=== PATIENT | female | born 1935 | race Caucasian/White ===

== ENCOUNTER 2020-03-12 07:01 | Inpatient (IN) ==
[2020-03-12] MEDS ORDERED: NITROGLYCERIN 2% OINT 1 INCH/GM PACK TOP STA (07:33)
[2020-03-12] MEDS ORDERED: NITROGLYCERIN SL 0.4 MG TABLET SL PRN ×2 (07:33→11:55)
[2020-03-12] MEDS ORDERED: ASPIRIN 325 MG TABLET PO STA (07:33)
[2020-03-12 07:58] LABS: Basophils # 0.1 10*3/uL (0.0-0.2); Basophils % 1.2 % (0.0-0.8); Eosinophils # 0.1 10*3/uL (0.0-0.87); Eosinophils % 2.4 % (0.00-10.9); Hematocrit 28.3 VOL% (35.7-47.0); Hemoglobin 8.8 GM/DL (12.0-16.0); Immature Granulocytes % 0.4 %; Immature Granulocytes Absolute 0.02 #; Lymphocytes % 19.1 % (21.3-54.2); Mean Corpuscular HGB Conc 31.1 GM/DL (32-36); Mean Corpuscular Volume 89.6 FL (87-102); Mean Platelet Volume 10.3 FL (9.6-12.0); Neutrophils % 66.9 % (38.7-73.9); Platelet Count 265 T/CUMM (130-400); Red Blood Count 3.16 MC/CUMM (3.8-5.5); Red Cell Distribution Width 14.6 % (9.3-17.3)
[2020-03-12 08:09] LABS: INR 1.3; PT Patient Result 13.5 SECS (9.8-11.9)
[2020-03-12 08:09] LABS: Calcium 9.2 MG/DL (8.5-10.1); Osmolality,Calculated 295.7 MOS/KG (273-304)
[2020-03-12 08:31] LABS: Apearance,Urine Slightly Hazy (Clear); Bacteria,Urine Occasional /HPF (Few); Bilirubin,Urine Negative (Negative); Blood, Urine Negative (Negative); Glucose,Urine (UA) Negative (Negative); Ketones,Urine Negative (Negative); Mucus,Urine Occasional /LPF (Occasional); Nitrite,Urine Negative (Negative); Protein,Urine Negative; RBC,Urine 2 /HPF (0-4); Squamous Epithelial Cell,Urine Occasional /HPF (0-10); Urine Color Yellow (Yellow); Urine Specific Gravity 1.014 (1.001-1.035); Urine Urobilinogen < 2.0 EU/DL (0.2-1.0); WBC,Urine 18 /HPF (0-6)
[2020-03-12] MEDS ORDERED: MAGNESIUM SULF RIDER 4 GM in PREMIX 1 EACH IV PRN (09:55)
[2020-03-12] MEDS ORDERED: MAGNESIUM SULF RIDER 2 GM in PREMIX 1 EACH IV PRN (09:55)
[2020-03-12] MEDS ORDERED: MORPHINE 4 MG/1 ML VIAL IV PRN (09:55)
[2020-03-12] MEDS ORDERED: FUROSEMIDE 40 MG/4 ML VIAL IV STA (10:39)
[2020-03-12] MEDS ORDERED: guaiFENesin/DM ER 600-30 MG TABLET PO PRN (11:55)
[2020-03-12] MEDS ORDERED: GLUCAGON 1 MG VIAL IM PRN (11:55)
[2020-03-12] MEDS ORDERED: hydrALAZINE 20 MG/1 ML VIAL IV PRN (11:55)
[2020-03-12] MEDS ORDERED: ONDANSETRON 4 MG/2 ML VIAL IV PRN (11:55)
[2020-03-12] MEDS ORDERED: LACTULOSE 20 GM/30 ML UDCUP PO PRN (11:55)
[2020-03-12] MEDS ORDERED: CALCIUM CARBONATE CHEW 500 MG TABLET PO PRN (11:55)
[2020-03-12] MEDS ORDERED: DOCUSATE/SENNA 50-8.6 MG TABLET PO PRN (11:55)
[2020-03-12] MEDS ORDERED: ALUMINUM/MAGNES/SIMETH MAX STR 30 ML UDCUP PO PRN (11:55)
[2020-03-12] MEDS ORDERED: DEXTROSE 10% 250 ML BAG IV PRN (11:55)
[2020-03-12] MEDS ORDERED: ZALEPLON 5 MG CAPSULE PO PRN (11:55)
[2020-03-12] MEDS ORDERED: BISACODYL 5 MG TABLET PO PRN (11:55)
[2020-03-12] MEDS ORDERED: SIMETHICONE CHEW 125 MG TABLET PO PRN (11:55)
[2020-03-12] MEDS: INSULIN LISPRO 100 UNIT/ML SUBCUT SCH ×3 (13:09→20:48)
[2020-03-12] MEDS: APIXABAN 2.5 MG TABLET PO SCH (20:47)
[2020-03-12] MEDS: clonazePAM 0.5 MG TABLET PO SCH (20:47)
[2020-03-12] MEDS: ATORVASTATIN 40 MG TABLET PO SCH (20:47)
[2020-03-13 05:57] LABS: Basophils # 0.1 10*3/uL (0.0-0.2); Basophils % 1.1 % (0.0-0.8); Eosinophils # 0.2 10*3/uL (0.0-0.87); Eosinophils % 4.5 % (0.00-10.9); Hematocrit 28.5 VOL% (35.7-47.0); Hemoglobin 8.8 GM/DL (12.0-16.0); Immature Granulocytes % 0.4 %; Immature Granulocytes Absolute 0.02 #; Lymphocytes # 1.6 10*3/uL (1.4-4.0); Lymphocytes % 28.9 % (21.3-54.2); Mean Corpuscular HGB Conc 30.9 GM/DL (32-36); Mean Platelet Volume 10.5 FL (9.6-12.0); Monocytes % 13.1 % (1.7-12.7); Platelet Count 261 T/CUMM (130-400); Red Blood Count 3.24 MC/CUMM (3.8-5.5); Red Cell Distribution Width 14.6 % (9.3-17.3); White Blood Count 5.4 T/CUMM (4-12)
[2020-03-13 06:29] LABS: % Iron Saturation 4.5 % (18-50)
[2020-03-13 06:34] LABS: Risk Ratio 2.71; VLDL CHOLESTEROL 22.2 MG/DL
[2020-03-13 06:36] LABS: Blood Urea Nitrogen 63 MG/DL (7-18); Calcium 9.3 MG/DL (8.5-10.1); Estimated Glom Filtration Rate 19 ML/MIN; Glucose 95 MG/DL (74-106); Osmolality,Calculated 294.5 MOS/KG (273-304); Troponin I 0.045 NG/ML (0.00-0.045)
[2020-03-13 06:42] LABS: Folate 8.3 NG/ML (5.4-24.0)
[2020-03-13] MEDS ORDERED: ISOSORBIDE MONONITRATE 60 MG TABLET PO SCH (09:00)
[2020-03-13] MEDS ORDERED: ASPIRIN EC 81 MG TABLET PO SCH (09:00)
[2020-03-13] MEDS: INSULIN LISPRO 100 UNIT/ML SUBCUT SCH ×4 (09:51→20:35)
[2020-03-13] MEDS: NEBIVOLOL 10 MG TABLET PO SCH (09:52)
[2020-03-13] MEDS: FUROSEMIDE 40 MG TABLET PO SCH (09:53)
[2020-03-13] MEDS: APIXABAN 2.5 MG TABLET PO SCH (09:53)
[2020-03-13] MEDS: CALCIUM (CARBONATE)/VITAMIN D 600 MG-400 UNIT TABLET PO SCH (09:53)
[2020-03-13] MEDS: GLUCOSAMINE 500 MG TABLET PO SCH (09:53)
[2020-03-13] MEDS: RALOXIFENE 60 MG TABLET PO SCH (09:53)
[2020-03-13] MEDS: FENOFIBRATE 145 MG TABLET PO SCH (09:53)
[2020-03-13] MEDS: PANTOPRAZOLE 40 MG TABLET PO SCH (09:54)
[2020-03-13] MEDS: ASPIRIN EC 81 MG TABLET PO SCH (10:02)
[2020-03-13] MEDS: CIPROFLOXACIN 250 MG TABLET PO SCH ×2 (14:42→20:35)
[2020-03-13] MEDS: IRON (CARBONYL) 45 MG TABLET PO SCH ×2 (14:42→20:35)
[2020-03-13] MEDS ORDERED: FUROSEMIDE 40 MG/4 ML VIAL IV ONE (16:37)
[2020-03-13] MEDS: amLODIPine 5 MG TABLET PO SCH (17:43)
[2020-03-13] MEDS: clonazePAM 0.5 MG TABLET PO SCH (20:35)
[2020-03-13] MEDS: ATORVASTATIN 40 MG TABLET PO SCH (20:35)
[2020-03-13] MEDS ORDERED: CLOPIDOGREL 300 MG TABLET PO ONE (21:00)
[2020-03-14 07:01] LABS: Basophils % 0.7 % (0.0-0.8); Eosinophils # 0.2 10*3/uL (0.0-0.87); Eosinophils % 3.2 % (0.00-10.9); Hematocrit 28.1 VOL% (35.7-47.0); Hemoglobin 8.6 GM/DL (12.0-16.0); Immature Granulocytes % 0.4 %; Immature Granulocytes Absolute 0.02 #; Lymphocytes # 1.4 10*3/uL (1.4-4.0); Lymphocytes % 26.3 % (21.3-54.2); Mean Corpuscular HGB Conc 30.6 GM/DL (32-36); Mean Corpuscular Volume 88.1 FL (87-102); Mean Platelet Volume 10.1 FL (9.6-12.0); Monocytes % 13.7 % (1.7-12.7); Neutrophils % 55.7 % (38.7-73.9); Platelet Count 269 T/CUMM (130-400); Red Blood Count 3.19 MC/CUMM (3.8-5.5); Red Cell Distribution Width 14.5 % (9.3-17.3); White Blood Count 5.4 T/CUMM (4-12)
[2020-03-14 07:16] LABS: Calcium 10.1 MG/DL (8.5-10.1); Osmolality,Calculated 295.4 MOS/KG (273-304)
[2020-03-14] MEDS: INSULIN LISPRO 100 UNIT/ML SUBCUT SCH ×4 (07:42→22:28)
[2020-03-14] MEDS: ASPIRIN EC 81 MG TABLET PO SCH (08:25)
[2020-03-14] MEDS: THYROID 60 MG TABLET PO SCH (08:25)
[2020-03-14] MEDS: IRON (CARBONYL) 45 MG TABLET PO SCH ×2 (08:26→22:24)
[2020-03-14] MEDS: NEBIVOLOL 10 MG TABLET PO SCH (08:26)
[2020-03-14] MEDS: ISOSORBIDE MONONITRATE 30 MG TABLET PO SCH (08:26)
[2020-03-14] MEDS: FUROSEMIDE 40 MG TABLET PO SCH (08:27)
[2020-03-14] MEDS: FENOFIBRATE 145 MG TABLET PO SCH (08:27)
[2020-03-14] MEDS: CLOPIDOGREL 75 MG TABLET PO SCH (08:27)
[2020-03-14] MEDS: PANTOPRAZOLE 40 MG TABLET PO SCH (08:27)
[2020-03-14] MEDS: amLODIPine 5 MG TABLET PO SCH (08:27)
[2020-03-14] MEDS: CALCIUM (CARBONATE)/VITAMIN D 600 MG-400 UNIT TABLET PO SCH (08:27)
[2020-03-14] MEDS: CIPROFLOXACIN 250 MG TABLET PO SCH ×2 (08:50→22:24)
[2020-03-14] MEDS: GLUCOSAMINE 500 MG TABLET PO SCH (08:50)
[2020-03-14] MEDS: RALOXIFENE 60 MG TABLET PO SCH (08:50)
[2020-03-14] MEDS: ATORVASTATIN 40 MG TABLET PO SCH (22:23)
[2020-03-14] MEDS: clonazePAM 0.5 MG TABLET PO SCH (22:23)
[2020-03-15 06:04] LABS: Basophils # 0.1 10*3/uL (0.0-0.2); Basophils % 0.9 % (0.0-0.8); Eosinophils # 0.3 10*3/uL (0.0-0.87); Eosinophils % 4.3 % (0.00-10.9); Hematocrit 27.5 VOL% (35.7-47.0); Hemoglobin 8.6 GM/DL (12.0-16.0); Immature Granulocytes % 0.3 %; Immature Granulocytes Absolute 0.02 #; Lymphocytes # 1.7 10*3/uL (1.4-4.0); Lymphocytes % 29.7 % (21.3-54.2); Mean Corpuscular HGB Conc 31.3 GM/DL (32-36); Mean Corpuscular Volume 87.3 FL (87-102); Mean Platelet Volume 10.5 FL (9.6-12.0); Monocytes % 13.9 % (1.7-12.7); Neutrophils % 50.9 % (38.7-73.9); Platelet Count 271 T/CUMM (130-400); Red Blood Count 3.15 MC/CUMM (3.8-5.5); Red Cell Distribution Width 14.6 % (9.3-17.3); White Blood Count 5.8 T/CUMM (4-12)
[2020-03-15 06:38] LABS: Calcium 9.5 MG/DL (8.5-10.1); Osmolality,Calculated 290.7 MOS/KG (273-304)
[2020-03-15] MEDS ORDERED: diphenhydrAMINE CAP 25 MG CAPSULE PO ONE ×2 (07:00→14:00)
[2020-03-15] MEDS ORDERED: DIAZEPAM 5 MG TABLET PO ONE ×2 (07:00→14:00)
[2020-03-15] MEDS: SODIUM CHLORIDE 0.9% 1,000 ML IV SCH ×3 (07:33→18:27)
[2020-03-15] MEDS ORDERED: POTASSIUM CHLORIDE RIDER 10 MEQ in PREMIX 1 EACH IV PRN (07:46)
[2020-03-15] MEDS: INSULIN LISPRO 100 UNIT/ML SUBCUT SCH ×4 (08:28→23:17)
[2020-03-15] MEDS: CALCIUM (CARBONATE)/VITAMIN D 600 MG-400 UNIT TABLET PO SCH (08:29)
[2020-03-15] MEDS: RALOXIFENE 60 MG TABLET PO SCH (08:29)
[2020-03-15] MEDS: NEBIVOLOL 10 MG TABLET PO SCH (08:29)
[2020-03-15] MEDS: CIPROFLOXACIN 250 MG TABLET PO SCH ×2 (08:29→23:10)
[2020-03-15] MEDS: ASPIRIN EC 81 MG TABLET PO SCH (08:29)
[2020-03-15] MEDS: PANTOPRAZOLE 40 MG TABLET PO SCH (08:30)
[2020-03-15] MEDS: FUROSEMIDE 40 MG TABLET PO SCH (08:30)
[2020-03-15] MEDS: IRON (CARBONYL) 45 MG TABLET PO SCH ×2 (08:30→23:09)
[2020-03-15] MEDS: GLUCOSAMINE 500 MG TABLET PO SCH (08:30)
[2020-03-15] MEDS: CLOPIDOGREL 75 MG TABLET PO SCH (08:30)
[2020-03-15] MEDS: ISOSORBIDE MONONITRATE 30 MG TABLET PO SCH (08:30)
[2020-03-15] MEDS: amLODIPine 5 MG TABLET PO SCH (08:30)
[2020-03-15] MEDS: FENOFIBRATE 145 MG TABLET PO SCH (08:31)
[2020-03-15] MEDS: POTASSIUM CHLORIDE 20 MEQ TABLET PO PRN ×3 (09:16→13:10)
[2020-03-15] MEDS ORDERED: HEPARIN/NACL 0.9% 2 UNITS/ML 1,000 ML IV ONE (13:24)
[2020-03-15] MEDS ORDERED: LIDOCAINE 1% 20 ML VIAL ONE (13:24)
[2020-03-15] MEDS ORDERED: MIDAZOLAM 2 MG/2 ML VIAL ONE ×3 (13:56→15:02)
[2020-03-15] MEDS ORDERED: fentaNYL 100 MCG/2 ML VIAL ONE ×2 (13:56→15:02)
[2020-03-15] MEDS ORDERED: HEPARIN 5,000 UNIT/1 ML VIAL ONE (14:06)
[2020-03-15] MEDS ORDERED: NITROPRUSSIDE 50 MG/2 ML VIAL ONE (14:09)
[2020-03-15] MEDS ORDERED: HEPARIN/NACL 0.9% 2 UNITS/ML 500 ML IV ONE (14:28)
[2020-03-15] MEDS ORDERED: diphenhydrAMINE 50 MG/1 ML VIAL ONE (14:30)
[2020-03-15] MEDS ORDERED: CLOPIDOGREL 300 MG TABLET ONE (15:08)
[2020-03-15] MEDS: clonazePAM 0.5 MG TABLET PO SCH (23:08)
[2020-03-15] MEDS: ATORVASTATIN 40 MG TABLET PO SCH (23:10)
[2020-03-16] MEDS ORDERED: ISOSORBIDE MONONITRATE 30 MG TABLET PO SCH (06:14)
[2020-03-16 06:37] LABS: Basophils # 0.1 10*3/uL (0.0-0.2); Eosinophils # 0.2 10*3/uL (0.0-0.87); Eosinophils % 3.9 % (0.00-10.9); Hematocrit 28.3 VOL% (35.7-47.0); Hemoglobin 8.6 GM/DL (12.0-16.0); Immature Granulocytes % 0.3 %; Immature Granulocytes Absolute 0.02 #; Lymphocytes # 1.8 10*3/uL (1.4-4.0); Lymphocytes % 28.1 % (21.3-54.2); Mean Corpuscular HGB Conc 30.4 GM/DL (32-36); Mean Corpuscular Volume 89.6 FL (87-102); Mean Platelet Volume 10.4 FL (9.6-12.0); Monocytes % 11.9 % (1.7-12.7); Neutrophils % 54.8 % (38.7-73.9); Platelet Count 243 T/CUMM (130-400); Red Blood Count 3.16 MC/CUMM (3.8-5.5); Red Cell Distribution Width 14.7 % (9.3-17.3); White Blood Count 6.2 T/CUMM (4-12)
[2020-03-16 06:53] LABS: Calcium 8.9 MG/DL (8.5-10.1); Osmolality,Calculated 291.4 MOS/KG (273-304)
[2020-03-16] MEDS: APIXABAN 2.5 MG TABLET PO SCH ×5 (08:49→13:57)
[2020-03-16] MEDS: INSULIN LISPRO 100 UNIT/ML SUBCUT SCH ×2 (08:49→11:47)
[2020-03-16] MEDS: SODIUM CHLORIDE 0.9% 1,000 ML IV SCH ×2 (10:06→10:46)
[2020-03-16] MEDS: RALOXIFENE 60 MG TABLET PO SCH (10:34)
[2020-03-16] MEDS: NEBIVOLOL 10 MG TABLET PO SCH (10:34)
[2020-03-16] MEDS: PANTOPRAZOLE 40 MG TABLET PO SCH (10:35)
[2020-03-16] MEDS: IRON (CARBONYL) 45 MG TABLET PO SCH (10:35)
[2020-03-16] MEDS: FENOFIBRATE 145 MG TABLET PO SCH (10:35)
[2020-03-16] MEDS: FUROSEMIDE 40 MG TABLET PO SCH (10:35)
[2020-03-16] MEDS: THYROID 60 MG TABLET PO SCH (10:35)
[2020-03-16] MEDS: CALCIUM (CARBONATE)/VITAMIN D 600 MG-400 UNIT TABLET PO SCH (10:36)
[2020-03-16] MEDS: GLUCOSAMINE 500 MG TABLET PO SCH (10:37)
[2020-03-16] MEDS: ASPIRIN EC 81 MG TABLET PO SCH (10:37)
[2020-03-16] MEDS: amLODIPine 5 MG TABLET PO SCH (10:37)
[2020-03-16] MEDS: CLOPIDOGREL 75 MG TABLET PO SCH (10:37)
[2020-03-16] MEDS: POTASSIUM CHLORIDE 20 MEQ TABLET PO PRN (10:37)
[2020-03-16] MEDS: CIPROFLOXACIN 250 MG TABLET PO SCH (10:38)
[2020-03-16 11:55] VITALS: BP 126/66
== END 2020-03-16 15:13 | disposition home or self-care (01) | DRG 246 ==
LOC: N.ED 07:01 → N.EDINP 09:55 → N.TELES 11:24
PROVIDERS: ADMIT Internal Medicine Cardiovascular Disease; ATTEND Internal Medicine Cardiovascular Disease

== ENCOUNTER 2020-07-22 11:12 | Observation (INO) ==
[2020-07-22] MEDS ORDERED: NITROGLYCERIN SL 0.4 MG TABLET SL PRN ×2 (11:44→16:25)
[2020-07-22 12:13] LABS: Albumin 3.3 G/DL (3.4-5.0); Bilirubin,Total 0.7 MG/DL (0.2-1.0); Calcium 9.9 MG/DL (8.5-10.1); Osmolality,Calculated 293.8 MOS/KG (273-304); Total Protein 7.2 G/DL (6.4-8.3)
[2020-07-22 12:43] LABS: Basophils # 0.1 10*3/uL (0.0-0.2); Basophils % 0.6 % (0.0-0.8); Eosinophils # 0.1 10*3/uL (0.0-0.87); Eosinophils % 0.9 % (0.00-10.9); Hematocrit 38.1 VOL% (35.7-47.0); Hemoglobin 12.8 GM/DL (12.0-16.0); Immature Granulocytes % 0.4 %; Immature Granulocytes Absolute 0.03 #; Lymphocytes # 1.4 10*3/uL (1.4-4.0); Lymphocytes % 17.1 % (21.3-54.2); Mean Corpuscular HGB Conc 33.6 GM/DL (32-36); Mean Corpuscular Volume 97.2 FL (87-102); Mean Platelet Volume 10.8 FL (9.6-12.0); Monocytes % 6.8 % (1.7-12.7); Neutrophils % 74.2 % (38.7-73.9); Platelet Count 228 T/CUMM (130-400); Red Blood Count 3.92 MC/CUMM (3.8-5.5); Red Cell Distribution Width 14.2 % (9.3-17.3); White Blood Count 8.1 T/CUMM (4-12)
[2020-07-22 12:55] LABS: INR 1.2; PT Patient Result 12.9 SECS (9.8-11.9); Partial Thromboplastin Time 33.2 SECS (23.9-33.8)
[2020-07-22] MEDS ORDERED: GLUCAGON 1 MG VIAL IM PRN (15:38)
[2020-07-22] MEDS ORDERED: DEXTROSE 50% 25 GM/50 ML VIAL IV PRN (15:38)
[2020-07-22] MEDS ORDERED: ONDANSETRON 4 MG/2 ML VIAL IV PRN (15:48)
[2020-07-22] MEDS ORDERED: hydrALAZINE 20 MG/1 ML VIAL IV PRN (15:48)
[2020-07-22] MEDS ORDERED: ACETAMINOPHEN 325 MG TABLET PO PRN (15:48)
[2020-07-22] MEDS ORDERED: guaiFENesin/DM ER 600-30 MG TABLET PO PRN (15:48)
[2020-07-22] MEDS ORDERED: BISACODYL 5 MG TABLET PO PRN (15:48)
[2020-07-22] MEDS ORDERED: ALBUTEROL 2.5 MG/3 ML NEB RESP TX PRN (16:20)
[2020-07-22] MEDS ORDERED: DOCUSATE/SENNA 50-8.6 MG TABLET PO PRN (16:25)
[2020-07-22 16:39] LABS: Risk Ratio 3.71; Thyroid Stimulating Hormone 0.971 uIU/ml (0.358-3.74)
[2020-07-22] MEDS ORDERED: INFLUENZA VIRUS VACCINE 0.5 ML SYRINGE IM ONE (17:29)
[2020-07-22] MEDS: ALBUTEROL/IPRATROPIUM 3 ML NEB RESP TX SCH (19:20)
[2020-07-22] MEDS: ALPRAZolam 0.25 MG TABLET PO SCH (20:32)
[2020-07-22] MEDS ORDERED: APIXABAN 2.5 MG TABLET PO SCH (21:00)
[2020-07-22] MEDS: FERROUS SULFATE 325 MG TABLET PO SCH (22:51)
[2020-07-22] MEDS: cefTRIAXone 1,000 MG in SODIUM CHLORIDE 0.9% 100 ML IV SCH (23:10)
[2020-07-22] MEDS: CLOPIDOGREL 75 MG TABLET PO SCH ×2 (23:10→23:13)
[2020-07-22] MEDS: ATORVASTATIN 80 MG TABLET PO SCH (23:14)
[2020-07-22] MEDS ORDERED: dilTIAZem Drip 125 MG/125 ML PREMIX IV SCH (23:30)
[2020-07-23] MEDS: ALBUTEROL/IPRATROPIUM 3 ML NEB RESP TX SCH ×5 (01:24→19:35)
[2020-07-23 02:51] LABS: Bacteria,Urine Moderate /HPF (Few); Bilirubin,Urine Negative (Negative); Blood, Urine Negative (Negative); Glucose,Urine (UA) Negative (Negative); Ketones,Urine Negative (Negative); Mucus,Urine Occasional /LPF (Occasional); Nitrite,Urine Positive (Negative); Protein,Urine Negative; RBC,Urine 2 /HPF (0-4); Squamous Epithelial Cell,Urine Occasional /HPF (0-10); Urine Appearance CLEAR (Clear); Urine Color Yellow (Yellow); Urine Specific Gravity 1.011 (1.001-1.035); Urine Urobilinogen < 2.0 EU/DL (0.2-1.0); WBC,Urine 11 /HPF (0-6)
[2020-07-23 06:28] LABS: Basophils % 0.6 % (0.0-0.8); Calcium 9.7 MG/DL (8.5-10.1); Eosinophils # 0.1 10*3/uL (0.0-0.87); Eosinophils % 2.9 % (0.00-10.9); Hematocrit 35.7 VOL% (35.7-47.0); Hemoglobin 11.8 GM/DL (12.0-16.0); Immature Granulocytes % 0.2 %; Immature Granulocytes Absolute 0.01 #; Lymphocytes # 1.5 10*3/uL (1.4-4.0); Lymphocytes % 30.4 % (21.3-54.2); Mean Corpuscular HGB Conc 33.1 GM/DL (32-36); Mean Corpuscular Volume 98.1 FL (87-102); Mean Platelet Volume 11.3 FL (9.6-12.0); Monocytes % 10.6 % (1.7-12.7); Neutrophils % 55.3 % (38.7-73.9); Osmolality,Calculated 299.3 MOS/KG (273-304); Platelet Count 212 T/CUMM (130-400); Red Blood Count 3.64 MC/CUMM (3.8-5.5); Red Cell Distribution Width 14.2 % (9.3-17.3); White Blood Count 4.8 T/CUMM (4-12)
[2020-07-23] MEDS ORDERED: POTASSIUM CHLORIDE 20 MEQ TABLET PO ONE (07:42)
[2020-07-23] MEDS ORDERED: FUROSEMIDE 80 MG TABLET PO SCH (09:00)
[2020-07-23] MEDS: NEBIVOLOL 10 MG TABLET PO SCH (09:32)
[2020-07-23] MEDS: PANTOPRAZOLE 40 MG TABLET PO SCH (09:33)
[2020-07-23] MEDS: FERROUS SULFATE 325 MG TABLET PO SCH ×2 (09:33→20:32)
[2020-07-23] MEDS: amLODIPine 5 MG TABLET PO SCH (09:33)
[2020-07-23] MEDS: AZITHROMYCIN 250 MG TABLET PO SCH (09:33)
[2020-07-23] MEDS: ISOSORBIDE MONONITRATE 60 MG TABLET PO SCH (09:34)
[2020-07-23] MEDS: APIXABAN 2.5 MG TABLET PO SCH (09:34)
[2020-07-23] MEDS: predniSONE 20 MG TABLET PO SCH (09:34)
[2020-07-23] MEDS: FENOFIBRATE 145 MG TABLET PO SCH (09:34)
[2020-07-23] MEDS: NON-FORMULARY MEDICATION (Calcium-Magnesium-Zinc 333-133-5 mg Tablet) PO SCH (09:35)
[2020-07-23] MEDS: NON-FORMULARY MEDICATION (Glucosamine-Chondroitin 250-200 mg Tablet) PO SCH (09:35)
[2020-07-23] MEDS: FUROSEMIDE 40 MG/4 ML VIAL IV SCH ×2 (09:43→17:11)
[2020-07-23] MEDS: ATORVASTATIN 80 MG TABLET PO SCH (20:32)
[2020-07-23] MEDS: cefTRIAXone 1,000 MG in SODIUM CHLORIDE 0.9% 100 ML IV SCH (20:32)
[2020-07-23] MEDS: CLOPIDOGREL 75 MG TABLET PO SCH (20:32)
[2020-07-24] MEDS: ALBUTEROL/IPRATROPIUM 3 ML NEB RESP TX SCH ×3 (01:06→13:58)
[2020-07-24 06:22] LABS: Basophils % 0.3 % (0.0-0.8); Eosinophils % 0.6 % (0.00-10.9); Hematocrit 37.5 VOL% (35.7-47.0); Hemoglobin 12.3 GM/DL (12.0-16.0); Immature Granulocytes % 0.5 %; Immature Granulocytes Absolute 0.03 #; Lymphocytes # 1.5 10*3/uL (1.4-4.0); Lymphocytes % 23.2 % (21.3-54.2); Mean Corpuscular HGB Conc 32.8 GM/DL (32-36); Mean Corpuscular Volume 98.9 FL (87-102); Mean Platelet Volume 11.1 FL (9.6-12.0); Monocytes % 9.7 % (1.7-12.7); Neutrophils % 65.7 % (38.7-73.9); Platelet Count 218 T/CUMM (130-400); Red Blood Count 3.79 MC/CUMM (3.8-5.5); Red Cell Distribution Width 14.5 % (9.3-17.3); White Blood Count 6.5 T/CUMM (4-12)
[2020-07-24 06:45] LABS: Calcium 10.2 MG/DL (8.5-10.1); Osmolality,Calculated 296.3 MOS/KG (273-304)
[2020-07-24] MEDS ORDERED: POTASSIUM CHLORIDE 20 MEQ TABLET PO SCH (09:00)
[2020-07-24] MEDS: amLODIPine 5 MG TABLET PO SCH (09:58)
[2020-07-24] MEDS: ISOSORBIDE MONONITRATE 60 MG TABLET PO SCH (09:58)
[2020-07-24] MEDS: NEBIVOLOL 10 MG TABLET PO SCH (09:58)
[2020-07-24] MEDS: FERROUS SULFATE 325 MG TABLET PO SCH (09:59)
[2020-07-24] MEDS: AZITHROMYCIN 250 MG TABLET PO SCH (09:59)
[2020-07-24] MEDS: FENOFIBRATE 145 MG TABLET PO SCH (09:59)
[2020-07-24] MEDS: APIXABAN 2.5 MG TABLET PO SCH (09:59)
[2020-07-24] MEDS: NON-FORMULARY MEDICATION (Calcium-Magnesium-Zinc 333-133-5 mg Tablet) PO SCH (09:59)
[2020-07-24] MEDS: predniSONE 20 MG TABLET PO SCH (09:59)
[2020-07-24] MEDS: PANTOPRAZOLE 40 MG TABLET PO SCH (09:59)
[2020-07-24] MEDS: NON-FORMULARY MEDICATION (Glucosamine-Chondroitin 250-200 mg Tablet) PO SCH (10:00)
[2020-07-24] MEDS: FUROSEMIDE 40 MG/4 ML VIAL IV SCH (10:05)
[2020-07-24] MEDS: ALPRAZolam 0.25 MG TABLET PO SCH (10:05)
[2020-07-24 14:03] VITALS: BP 134/63
[2020-07-25] MEDS ORDERED: THYROID 60 MG TABLET PO SCH (09:00)
== END 2020-07-24 15:45 | disposition home or self-care (01) ==
LOC: N.ED 11:12 → N.EDINP 11:12 → N.TELEN 17:05
PROVIDERS: ADMIT Internal Medicine; ATTEND Internal Medicine

== ENCOUNTER 2021-05-11 16:00 | Inpatient (IN) ==
[2021-05-11 18:35] LABS: Basophils % 0.5 % (0.0-0.8); Eosinophils # 0.1 10*3/uL (0.0-0.87); Eosinophils % 2.4 % (0.00-10.9); Hemoglobin 10.6 GM/DL (12.0-16.0); Immature Granulocytes % 0.3 %; Immature Granulocytes Absolute 0.02 #; Lymphocytes # 1.1 10*3/uL (1.4-4.0); Lymphocytes % 19.5 % (21.3-54.2); Mean Corpuscular HGB Conc 31.2 GM/DL (32-36); Mean Corpuscular Volume 93.9 FL (87-102); Mean Platelet Volume 11.3 FL (9.6-12.0); Monocytes % 10.7 % (1.7-12.7); Neutrophils % 66.6 % (38.7-73.9); Platelet Count 242 T/CUMM (130-400); Red Blood Count 3.62 MC/CUMM (3.8-5.5); Red Cell Distribution Width 17.2 % (9.3-17.3); White Blood Count 5.8 T/CUMM (4-12)
[2021-05-11 18:43] LABS: Albumin 2.9 G/DL (3.4-5.0); Bilirubin,Total 0.6 MG/DL (0.20-1.00); INR 1.2; Osmolality,Calculated 291.1 MOS/KG (273-304); PT Patient Result 12.9 SECS (10.5-12.0); Partial Thromboplastin Time 29.2 SECS (23.9-33.8); Potassium 4.3 MMOL/L (3.5-5.1); Total Protein 6.4 G/DL (6.4-8.2)
[2021-05-11] MEDS ORDERED: FUROSEMIDE 40 MG/4 ML VIAL IV STA (22:42)
[2021-05-11] MEDS ORDERED: GLUCAGON 1 MG VIAL IM PRN (23:20)
[2021-05-11] MEDS ORDERED: DOCUSATE SODIUM 100 MG CAPSULE PO PRN (23:20)
[2021-05-11] MEDS ORDERED: ACETAMINOPHEN 325 MG TABLET PO PRN (23:20)
[2021-05-11] MEDS ORDERED: DEXTROSE 50% 25 GM/50 ML VIAL IV PRN (23:20)
[2021-05-11] MEDS ORDERED: DOCUSATE/SENNA 50-8.6 MG TABLET PO PRN (23:26)
[2021-05-11] MEDS ORDERED: NITROGLYCERIN SL 0.4 MG TABLET SL PRN (23:26)
[2021-05-12] MEDS: ATORVASTATIN 40 MG TABLET PO SCH ×2 (00:21→22:07)
[2021-05-12] MEDS: APIXABAN 2.5 MG TABLET PO SCH ×3 (00:21→22:07)
[2021-05-12] MEDS: fentaNYL 25 MCG/HR PATCH TRANSDERM SCH (00:22)
[2021-05-12 05:45] LABS: Basophils # 0.1 10*3/uL (0.0-0.2); Basophils % 1.4 % (0.0-0.8); Eosinophils # 0.3 10*3/uL (0.0-0.87); Eosinophils % 6.3 % (0.00-10.9); Hematocrit 33.2 VOL% (35.7-47.0); Hemoglobin 10.6 GM/DL (12.0-16.0); Immature Granulocytes % 0.4 %; Immature Granulocytes Absolute 0.02 #; Lymphocytes # 1.2 10*3/uL (1.4-4.0); Mean Corpuscular HGB Conc 31.9 GM/DL (32-36); Mean Corpuscular Volume 93.3 FL (87-102); Mean Platelet Volume 10.7 FL (9.6-12.0); Monocytes % 13.3 % (1.7-12.7); Neutrophils % 55.6 % (38.7-73.9); Platelet Count 211 T/CUMM (130-400); Red Blood Count 3.56 MC/CUMM (3.8-5.5); Red Cell Distribution Width 17.2 % (9.3-17.3); White Blood Count 5.1 T/CUMM (4-12)
[2021-05-12 06:18] LABS: Calcium 9.4 MG/DL (8.5-10.1); Potassium 4.3 MMOL/L (3.5-5.1)
[2021-05-12] MEDS: RALOXIFENE 60 MG TABLET PO SCH (08:58)
[2021-05-12] MEDS: PANTOPRAZOLE 40 MG TABLET PO SCH (08:58)
[2021-05-12] MEDS: CLOPIDOGREL 75 MG TABLET PO SCH (08:58)
[2021-05-12] MEDS: NEBIVOLOL 10 MG TABLET PO SCH (08:58)
[2021-05-12] MEDS: THYROID 60 MG TABLET PO SCH (08:58)
[2021-05-12] MEDS: FERROUS SULFATE 325 MG TABLET PO SCH ×2 (08:58→16:51)
[2021-05-12] MEDS: FENOFIBRATE 145 MG TABLET PO SCH (08:58)
[2021-05-12] MEDS: amLODIPine 10 MG TABLET PO SCH (08:59)
[2021-05-12] MEDS: metOLazone 5 MG TABLET PO SCH ×2 (08:59→09:28)
[2021-05-12] MEDS ORDERED: NON-FORMULARY MEDICATION (Calcium-Magnesium-Zinc 333-133-5 mg Tablet) PO SCH (09:00)
[2021-05-12] MEDS ORDERED: ISOSORBIDE MONONITRATE 60 MG TABLET PO SCH (09:00)
[2021-05-12] MEDS: FUROSEMIDE 40 MG/4 ML VIAL IV SCH ×2 (09:50→15:52)
[2021-05-12] MEDS: RANOLAZINE 500 MG TABLET PO SCH (22:07)
[2021-05-12] MEDS: SILDENAFIL 20 MG TABLET PO SCH (22:07)
[2021-05-13 05:38] LABS: Basophils # 0.1 10*3/uL (0.0-0.2); Basophils % 1.2 % (0.0-0.8); Eosinophils # 0.3 10*3/uL (0.0-0.87); Eosinophils % 5.4 % (0.00-10.9); Hematocrit 33.8 VOL% (35.7-47.0); Hemoglobin 10.8 GM/DL (12.0-16.0); Immature Granulocytes % 0.4 %; Immature Granulocytes Absolute 0.02 #; Lymphocytes # 1.1 10*3/uL (1.4-4.0); Lymphocytes % 20.5 % (21.3-54.2); Mean Corpuscular Volume 92.9 FL (87-102); Mean Platelet Volume 10.7 FL (9.6-12.0); Monocytes % 12.5 % (1.7-12.7); Platelet Count 223 T/CUMM (130-400); Red Blood Count 3.64 MC/CUMM (3.8-5.5); Red Cell Distribution Width 17.3 % (9.3-17.3); White Blood Count 5.2 T/CUMM (4-12)
[2021-05-13 05:47] LABS: Calcium 9.3 MG/DL (8.5-10.1); Osmolality,Calculated 291.3 MOS/KG (273-304); Potassium 3.5 MMOL/L (3.5-5.1)
[2021-05-13] MEDS: ONDANSETRON 4 MG/2 ML VIAL IV PRN ×3 (07:23→18:54)
[2021-05-13] MEDS: FENOFIBRATE 145 MG TABLET PO SCH (08:26)
[2021-05-13] MEDS: FERROUS SULFATE 325 MG TABLET PO SCH ×2 (08:27→16:29)
[2021-05-13] MEDS: NEBIVOLOL 10 MG TABLET PO SCH (08:27)
[2021-05-13] MEDS: CLOPIDOGREL 75 MG TABLET PO SCH (08:28)
[2021-05-13] MEDS: RANOLAZINE 500 MG TABLET PO SCH ×2 (08:28→21:37)
[2021-05-13] MEDS: PANTOPRAZOLE 40 MG TABLET PO SCH (08:28)
[2021-05-13] MEDS: APIXABAN 2.5 MG TABLET PO SCH ×2 (08:29→21:37)
[2021-05-13] MEDS: RALOXIFENE 60 MG TABLET PO SCH (08:29)
[2021-05-13] MEDS: FUROSEMIDE 40 MG/4 ML VIAL IV SCH ×2 (08:32→15:35)
[2021-05-13] MEDS: SILDENAFIL 20 MG TABLET PO SCH ×3 (08:33→21:37)
[2021-05-13] MEDS: amLODIPine 10 MG TABLET PO SCH (08:34)
[2021-05-13] MEDS ORDERED: PROMETHAZINE 25 MG TABLET PO ONE (15:41)
[2021-05-13] MEDS: ATORVASTATIN 40 MG TABLET PO SCH (21:37)
[2021-05-14 06:05] LABS: Basophils # 0.1 10*3/uL (0.0-0.2); Basophils % 0.6 % (0.0-0.8); Eosinophils # 0.1 10*3/uL (0.0-0.87); Eosinophils % 1.3 % (0.00-10.9); Hematocrit 36.1 VOL% (35.7-47.0); Hemoglobin 11.5 GM/DL (12.0-16.0); Immature Granulocytes % 1.3 %; Immature Granulocytes Absolute 0.13 #; Lymphocytes # 0.8 10*3/uL (1.4-4.0); Lymphocytes % 7.9 % (21.3-54.2); Mean Corpuscular HGB Conc 31.9 GM/DL (32-36); Mean Corpuscular Volume 92.6 FL (87-102); Mean Platelet Volume 11.3 FL (9.6-12.0); Monocytes % 6.6 % (1.7-12.7); Neutrophils % 82.3 % (38.7-73.9); Platelet Count 244 T/CUMM (130-400); Red Cell Distribution Width 17.4 % (9.3-17.3); White Blood Count 9.6 T/CUMM (4-12)
[2021-05-14] MEDS: ONDANSETRON 4 MG/2 ML VIAL IV PRN ×2 (06:12→21:59)
[2021-05-14 06:50] LABS: Calcium 9.4 MG/DL (8.5-10.1); Osmolality,Calculated 293.1 MOS/KG (273-304); Potassium 3.5 MMOL/L (3.5-5.1)
[2021-05-14] MEDS: FUROSEMIDE 40 MG/4 ML VIAL IV SCH ×2 (09:26→16:24)
[2021-05-14] MEDS: CLOPIDOGREL 75 MG TABLET PO SCH (09:27)
[2021-05-14] MEDS: FENOFIBRATE 145 MG TABLET PO SCH (09:27)
[2021-05-14] MEDS: FERROUS SULFATE 325 MG TABLET PO SCH ×2 (09:27→16:22)
[2021-05-14] MEDS: RANOLAZINE 500 MG TABLET PO SCH ×2 (09:27→21:59)
[2021-05-14] MEDS: NEBIVOLOL 10 MG TABLET PO SCH (09:27)
[2021-05-14] MEDS: APIXABAN 2.5 MG TABLET PO SCH ×2 (09:27→21:59)
[2021-05-14] MEDS: amLODIPine 10 MG TABLET PO SCH (09:28)
[2021-05-14] MEDS: SILDENAFIL 20 MG TABLET PO SCH ×3 (09:28→21:59)
[2021-05-14] MEDS: PANTOPRAZOLE 40 MG TABLET PO SCH (09:28)
[2021-05-14] MEDS: RALOXIFENE 60 MG TABLET PO SCH (11:06)
[2021-05-14] MEDS: POLYETHYLENE GLYCOL POWDER 17 GM PACK PO SCH (16:23)
[2021-05-14] MEDS: DOCUSATE/SENNA 50-8.6 MG TABLET PO SCH (21:58)
[2021-05-14] MEDS: ATORVASTATIN 40 MG TABLET PO SCH (21:59)
[2021-05-15] MEDS: fentaNYL 25 MCG/HR PATCH TRANSDERM SCH (00:21)
[2021-05-15 06:08] LABS: Basophils # 0.1 10*3/uL (0.0-0.2); Basophils % 0.5 % (0.0-0.8); Eosinophils # 0.1 10*3/uL (0.0-0.87); Eosinophils % 0.7 % (0.00-10.9); Hematocrit 36.2 VOL% (35.7-47.0); Hemoglobin 11.6 GM/DL (12.0-16.0); Immature Granulocytes % 0.4 %; Immature Granulocytes Absolute 0.04 #; Lymphocytes # 0.8 10*3/uL (1.4-4.0); Lymphocytes % 8.1 % (21.3-54.2); Mean Corpuscular Volume 91.2 FL (87-102); Mean Platelet Volume 10.5 FL (9.6-12.0); Monocytes % 6.6 % (1.7-12.7); Neutrophils % 83.7 % (38.7-73.9); Platelet Count 232 T/CUMM (130-400); Red Blood Count 3.97 MC/CUMM (3.8-5.5); Red Cell Distribution Width 16.9 % (9.3-17.3); White Blood Count 9.5 T/CUMM (4-12)
[2021-05-15] MEDS: ONDANSETRON 4 MG/2 ML VIAL IV PRN ×3 (06:24→15:03)
[2021-05-15 06:31] LABS: Calcium 9.3 MG/DL (8.5-10.1); Potassium 3.1 MMOL/L (3.5-5.1)
[2021-05-15] MEDS: FERROUS SULFATE 325 MG TABLET PO SCH ×2 (09:29→17:31)
[2021-05-15] MEDS: DOCUSATE/SENNA 50-8.6 MG TABLET PO SCH ×2 (09:30→20:20)
[2021-05-15] MEDS: PANTOPRAZOLE 40 MG TABLET PO SCH (09:30)
[2021-05-15] MEDS: NEBIVOLOL 10 MG TABLET PO SCH (09:30)
[2021-05-15] MEDS: FUROSEMIDE 40 MG/4 ML VIAL IV SCH (09:31)
[2021-05-15] MEDS: POLYETHYLENE GLYCOL POWDER 17 GM PACK PO SCH (09:32)
[2021-05-15] MEDS: FENOFIBRATE 145 MG TABLET PO SCH (09:32)
[2021-05-15] MEDS: CLOPIDOGREL 75 MG TABLET PO SCH (09:33)
[2021-05-15] MEDS: RANOLAZINE 500 MG TABLET PO SCH (09:33)
[2021-05-15] MEDS: SILDENAFIL 20 MG TABLET PO SCH ×3 (09:33→20:20)
[2021-05-15] MEDS: APIXABAN 2.5 MG TABLET PO SCH ×2 (09:33→20:19)
[2021-05-15] MEDS: THYROID 60 MG TABLET PO SCH (09:33)
[2021-05-15] MEDS: RALOXIFENE 60 MG TABLET PO SCH (09:33)
[2021-05-15] MEDS: amLODIPine 10 MG TABLET PO SCH (09:33)
[2021-05-15] MEDS ORDERED: POTASSIUM CHLORIDE 20 MEQ TABLET PO ONE (10:22)
[2021-05-15] MEDS: ATORVASTATIN 40 MG TABLET PO SCH (20:19)
[2021-05-16] MEDS ORDERED: TORSEMIDE 20 MG TABLET PO SCH (09:00)
[2021-05-16] MEDS ORDERED: FUROSEMIDE 40 MG/4 ML VIAL IV SCH (09:00)
[2021-05-16 10:20] LABS: Basophils # 0.1 10*3/uL (0.0-0.2); Basophils % 0.5 % (0.0-0.8); Eosinophils # 0.1 10*3/uL (0.0-0.87); Eosinophils % 0.5 % (0.00-10.9); Hematocrit 41.5 VOL% (35.7-47.0); Hemoglobin 13.3 GM/DL (12.0-16.0); Immature Granulocytes % 0.5 %; Immature Granulocytes Absolute 0.05 #; Lymphocytes # 0.9 10*3/uL (1.4-4.0); Lymphocytes % 9.6 % (21.3-54.2); Mean Corpuscular Volume 91.2 FL (87-102); Mean Platelet Volume 10.8 FL (9.6-12.0); Monocytes % 8.3 % (1.7-12.7); Neutrophils % 80.6 % (38.7-73.9); Platelet Count 308 T/CUMM (130-400); Red Blood Count 4.55 MC/CUMM (3.8-5.5); Red Cell Distribution Width 17.1 % (9.3-17.3); White Blood Count 9.4 T/CUMM (4-12)
[2021-05-16 10:28] LABS: Calcium 9.5 MG/DL (8.5-10.1); Osmolality,Calculated 280.4 MOS/KG (273-304); Potassium 3.7 MMOL/L (3.5-5.1)
[2021-05-16] MEDS: NEBIVOLOL 10 MG TABLET PO SCH (10:52)
[2021-05-16] MEDS: APIXABAN 2.5 MG TABLET PO SCH (10:53)
[2021-05-16] MEDS: FERROUS SULFATE 325 MG TABLET PO SCH (10:54)
[2021-05-16] MEDS: CLOPIDOGREL 75 MG TABLET PO SCH (10:54)
[2021-05-16] MEDS: PANTOPRAZOLE 40 MG TABLET PO SCH (10:54)
[2021-05-16] MEDS: FENOFIBRATE 145 MG TABLET PO SCH (10:55)
[2021-05-16] MEDS: amLODIPine 10 MG TABLET PO SCH (10:55)
[2021-05-16] MEDS: SILDENAFIL 20 MG TABLET PO SCH ×2 (10:56→16:22)
[2021-05-16] MEDS: DOCUSATE/SENNA 50-8.6 MG TABLET PO SCH (10:58)
[2021-05-16] MEDS: RALOXIFENE 60 MG TABLET PO SCH (11:00)
[2021-05-16] MEDS: POLYETHYLENE GLYCOL POWDER 17 GM PACK PO SCH (11:01)
[2021-05-16 12:27] VITALS: BP 182/75
[2021-05-16] MEDS ORDERED: SKIN HEALING OINT (AQUAPHOR) 50 GM TUBE TOP PRN (14:01)
[2021-05-16] MEDS ORDERED: TERAZOSIN 1 MG CAPSULE PO SCH (21:00)
== END 2021-05-16 16:15 | disposition hospice, home (50) | DRG 291 ==
LOC: N.ED 16:00 → N.EDINP 16:00 → SUATTDRO 21:59 → N.5E 22:41 → SUATTDRO 05-14 19:54 → N.TELES 05-15 19:24
PROVIDERS: ADMIT Internal Medicine; ATTEND Internal Medicine Geriatric Medicine

== ENCOUNTER 2021-08-02 09:27 | Inpatient (IN) ==
[2021-08-02] MEDS ORDERED: FUROSEMIDE 100 MG/10 ML VIAL IV STA (09:54)
[2021-08-02 10:04] LABS: Basophils # 0.1 10*3/uL (0.0-0.2); Basophils % 0.9 % (0.0-0.8); Eosinophils # 0.1 10*3/uL (0.0-0.87); Eosinophils % 2.4 % (0.00-10.9); Hematocrit 33.3 VOL% (35.7-47.0); Hemoglobin 10.6 GM/DL (12.0-16.0); Immature Granulocytes % 0.6 %; Immature Granulocytes Absolute 0.03 #; Lymphocytes % 18.8 % (21.3-54.2); Mean Corpuscular HGB Conc 31.8 GM/DL (32-36); Mean Corpuscular Volume 95.4 FL (87-102); Monocytes % 8.9 % (1.7-12.7); Neutrophils % 68.4 % (38.7-73.9); Platelet Count 209 T/CUMM (130-400); Red Blood Count 3.49 MC/CUMM (3.8-5.5); Red Cell Distribution Width 17.4 % (9.3-17.3); White Blood Count 5.4 T/CUMM (4-12)
[2021-08-02 10:22] LABS: Albumin 3.1 G/DL (3.4-5.0); Bilirubin,Total 0.8 MG/DL (0.20-1.00); Calcium 9.7 MG/DL (8.5-10.1); Osmolality,Calculated 299.3 MOS/KG (273-304); Potassium 4.3 MMOL/L (3.5-5.1); Total Protein 7.2 G/DL (6.4-8.2)
[2021-08-02 10:38] LABS: Bacteria,Urine Occasional /HPF (Few); Bilirubin,Urine Negative (Negative); Blood, Urine Negative (Negative); Glucose,Urine (UA) Negative (Negative); Hyaline Casts,Urine 3 /LPF (0-3); Ketones,Urine Negative (Negative); Mucus,Urine Occasional /LPF (Occasional); Nitrite,Urine Negative (Negative); Protein,Urine Negative; RBC,Urine 2 /HPF (0-4); Squamous Epithelial Cell,Urine Occasional /HPF (0-10); Urine Appearance CLEAR (Clear); Urine Color Yellow (Yellow); Urine Specific Gravity 1.012 (1.001-1.035); Urine Urobilinogen < 2.0 EU/DL (0.2-1.0)
[2021-08-02] MEDS ORDERED: hydrALAZINE 20 MG/1 ML VIAL IV ONE (11:02)
[2021-08-02] MEDS ORDERED: DEXTROSE 50% 25 GM/50 ML VIAL IV PRN (11:36)
[2021-08-02] MEDS ORDERED: hydrALAZINE 20 MG/1 ML VIAL IV PRN (11:36)
[2021-08-02] MEDS ORDERED: ALBUTEROL 2.5 MG/3 ML NEB RESP TX PRN (11:36)
[2021-08-02] MEDS ORDERED: MAGNESIUM SULF RIDER 4 GM/100 ML PREMIX IV PRN (11:36)
[2021-08-02] MEDS ORDERED: GLUCAGON 1 MG VIAL IM PRN (11:36)
[2021-08-02] MEDS ORDERED: BISACODYL 5 MG TABLET PO PRN (11:36)
[2021-08-02] MEDS ORDERED: MAGNESIUM SULF RIDER 2 GM/50 ML PREMIX IV PRN (11:36)
[2021-08-02] MEDS ORDERED: NITROGLYCERIN SL 0.4 MG TABLET SL PRN (11:40)
[2021-08-02] MEDS ORDERED: fentaNYL 25 MCG/HR PATCH TRANSDERM SCH (12:00)
[2021-08-02] MEDS ORDERED: amLODIPine 5 MG TABLET PO STA (12:46)
[2021-08-02] MEDS ORDERED: ISOSORBIDE MONONITRATE 30 MG TABLET PO SCH (13:00)
[2021-08-02] MEDS ORDERED: VANCOMYCIN INJ 1,250 MG in SODIUM CHLORIDE 0.9% 250 ML IV PRN (15:35)
[2021-08-02] MEDS ORDERED: INFLUENZA VIRUS VACCINE 0.5 ML SYRINGE IM ONE (16:11)
[2021-08-02] MEDS: FUROSEMIDE 40 MG/4 ML VIAL IV SCH (16:42)
[2021-08-02] MEDS: THYROID 60 MG TABLET PO SCH (16:42)
[2021-08-02] MEDS: SILDENAFIL 20 MG TABLET PO SCH ×2 (16:42→21:29)
[2021-08-02] MEDS: NEBIVOLOL 10 MG TABLET PO SCH (16:42)
[2021-08-02] MEDS: cefTRIAXone 1,000 MG in SODIUM CHLORIDE 0.9% 100 ML IV SCH (16:43)
[2021-08-02] MEDS ORDERED: VANCOMYCIN INJ 2,250 MG in SODIUM CHLORIDE 0.9% 500 ML IV ONE (17:00)
[2021-08-02] MEDS: INSULIN LISPRO 100 UNIT/ML SUBCUT SCH ×2 (17:10→21:12)
[2021-08-02] MEDS: APIXABAN 2.5 MG TABLET PO SCH (21:28)
[2021-08-02] MEDS: ATORVASTATIN 40 MG TABLET PO SCH (21:28)
[2021-08-02] MEDS: FERROUS SULFATE 325 MG TABLET PO SCH (21:29)
[2021-08-03] MEDS: FUROSEMIDE 40 MG/4 ML VIAL IV SCH ×3 (00:26→17:20)
[2021-08-03 05:20] LABS: Basophils % 0.8 % (0.0-0.8); Eosinophils # 0.3 10*3/uL (0.0-0.87); Eosinophils % 4.9 % (0.00-10.9); Hematocrit 30.6 VOL% (35.7-47.0); Hemoglobin 9.7 GM/DL (12.0-16.0); Immature Granulocytes % 0.4 %; Immature Granulocytes Absolute 0.02 #; Lymphocytes % 19.1 % (21.3-54.2); Mean Corpuscular HGB Conc 31.7 GM/DL (32-36); Mean Corpuscular Volume 97.1 FL (87-102); Mean Platelet Volume 11.5 FL (9.6-12.0); Monocytes % 12.1 % (1.7-12.7); Neutrophils % 62.7 % (38.7-73.9); Platelet Count 179 T/CUMM (130-400); Red Blood Count 3.15 MC/CUMM (3.8-5.5); Red Cell Distribution Width 17.5 % (9.3-17.3); White Blood Count 5.1 T/CUMM (4-12)
[2021-08-03 05:41] LABS: Calcium 8.9 MG/DL (8.5-10.1); Potassium 3.9 MMOL/L (3.5-5.1); Risk Ratio 2.81; VLDL Cholesterol 13.8 MG/DL
[2021-08-03] MEDS: INSULIN LISPRO 100 UNIT/ML SUBCUT SCH ×4 (07:30→21:50)
[2021-08-03] MEDS ORDERED: ISOSORBIDE MONONITRATE 60 MG TABLET PO SCH (09:00)
[2021-08-03] MEDS ORDERED: NEBIVOLOL 10 MG TABLET PO SCH (09:00)
[2021-08-03] MEDS ORDERED: CALCIUM MAGNESIUM ZINC PO SCH (09:00)
[2021-08-03] MEDS: FERROUS SULFATE 325 MG TABLET PO SCH ×2 (09:38→22:09)
[2021-08-03] MEDS: NEBIVOLOL 10 MG TABLET PO SCH (09:38)
[2021-08-03] MEDS: APIXABAN 2.5 MG TABLET PO SCH ×2 (09:39→22:09)
[2021-08-03] MEDS: PANTOPRAZOLE 40 MG TABLET PO SCH (09:39)
[2021-08-03] MEDS: RALOXIFENE 60 MG TABLET PO SCH ×2 (09:39→15:51)
[2021-08-03] MEDS: CLOPIDOGREL 75 MG TABLET PO SCH (09:39)
[2021-08-03] MEDS: amLODIPine 10 MG TABLET PO SCH (09:39)
[2021-08-03] MEDS: SILDENAFIL 20 MG TABLET PO SCH ×3 (09:39→22:09)
[2021-08-03] MEDS: FENOFIBRATE 145 MG TABLET PO SCH (09:39)
[2021-08-03] MEDS ORDERED: AZITHROMYCIN INJ 500 MG in SODIUM CHLORIDE 0.9% 250 ML IV SCH (11:00)
[2021-08-03] MEDS: cefTRIAXone 1,000 MG in SODIUM CHLORIDE 0.9% 100 ML IV SCH (12:25)
[2021-08-03] MEDS: ATORVASTATIN 40 MG TABLET PO SCH (22:08)
[2021-08-04] MEDS: FUROSEMIDE 40 MG/4 ML VIAL IV SCH ×3 (02:00→17:09)
[2021-08-04] MEDS: INSULIN LISPRO 100 UNIT/ML SUBCUT SCH ×4 (07:30→21:41)
[2021-08-04 08:33] LABS: Basophils # 0.1 10*3/uL (0.0-0.2); Basophils % 1.1 % (0.0-0.8); Eosinophils # 0.3 10*3/uL (0.0-0.87); Eosinophils % 5.9 % (0.00-10.9); Hematocrit 32.1 VOL% (35.7-47.0); Immature Granulocytes % 0.5 %; Immature Granulocytes Absolute 0.02 #; Lymphocytes % 23.4 % (21.3-54.2); Mean Corpuscular HGB Conc 31.2 GM/DL (32-36); Mean Corpuscular Volume 96.4 FL (87-102); Mean Platelet Volume 11.1 FL (9.6-12.0); Monocytes % 12.2 % (1.7-12.7); Neutrophils % 56.9 % (38.7-73.9); Platelet Count 205 T/CUMM (130-400); Red Blood Count 3.33 MC/CUMM (3.8-5.5); Red Cell Distribution Width 17.1 % (9.3-17.3); White Blood Count 4.4 T/CUMM (4-12)
[2021-08-04] MEDS: SILDENAFIL 20 MG TABLET PO SCH ×3 (08:50→21:40)
[2021-08-04] MEDS: CLOPIDOGREL 75 MG TABLET PO SCH (08:50)
[2021-08-04] MEDS: amLODIPine 10 MG TABLET PO SCH (08:50)
[2021-08-04] MEDS: FENOFIBRATE 145 MG TABLET PO SCH (08:50)
[2021-08-04] MEDS: FERROUS SULFATE 325 MG TABLET PO SCH ×2 (08:50→21:39)
[2021-08-04] MEDS: NEBIVOLOL 10 MG TABLET PO SCH (08:50)
[2021-08-04] MEDS: PANTOPRAZOLE 40 MG TABLET PO SCH (08:51)
[2021-08-04] MEDS: APIXABAN 2.5 MG TABLET PO SCH ×2 (08:51→21:40)
[2021-08-04] MEDS: RALOXIFENE 60 MG TABLET PO SCH (08:51)
[2021-08-04] MEDS: cefTRIAXone 1,000 MG in SODIUM CHLORIDE 0.9% 100 ML IV SCH (08:53)
[2021-08-04 08:55] LABS: Calcium 9.7 MG/DL (8.5-10.1); Osmolality,Calculated 298.3 MOS/KG (273-304); Potassium 3.9 MMOL/L (3.5-5.1)
[2021-08-04] MEDS: fentaNYL 25 MCG/HR PATCH TRANSDERM SCH (11:46)
[2021-08-04] MEDS: AZITHROMYCIN 250 MG TABLET PO SCH (11:47)
[2021-08-04] MEDS: THYROID 60 MG TABLET PO SCH (11:47)
[2021-08-04] MEDS: ONDANSETRON 4 MG/2 ML VIAL IV PRN (17:11)
[2021-08-04] MEDS: ATORVASTATIN 40 MG TABLET PO SCH (21:39)
[2021-08-04] MEDS: TERAZOSIN 1 MG CAPSULE PO SCH (21:39)
[2021-08-04] MEDS: DOCUSATE/SENNA 50-8.6 MG TABLET PO PRN (21:40)
[2021-08-04] MEDS: ACETAMINOPHEN 325 MG TABLET PO PRN (21:40)
[2021-08-05] MEDS: FUROSEMIDE 40 MG/4 ML VIAL IV SCH ×3 (00:01→22:01)
[2021-08-05 05:45] LABS: Basophils % 0.5 % (0.0-0.8); Eosinophils # 0.1 10*3/uL (0.0-0.87); Eosinophils % 1.3 % (0.00-10.9); Hemoglobin 9.7 GM/DL (12.0-16.0); Immature Granulocytes % 0.3 %; Immature Granulocytes Absolute 0.01 #; Lymphocytes # 0.7 10*3/uL (1.4-4.0); Lymphocytes % 17.4 % (21.3-54.2); Mean Corpuscular HGB Conc 32.3 GM/DL (32-36); Mean Corpuscular Volume 95.5 FL (87-102); Mean Platelet Volume 11.4 FL (9.6-12.0); Monocytes % 8.9 % (1.7-12.7); Neutrophils % 71.6 % (38.7-73.9); Platelet Count 184 T/CUMM (130-400); Red Blood Count 3.14 MC/CUMM (3.8-5.5); Red Cell Distribution Width 16.9 % (9.3-17.3); White Blood Count 3.8 T/CUMM (4-12)
[2021-08-05 06:05] LABS: Calcium 9.2 MG/DL (8.5-10.1); Osmolality,Calculated 295.5 MOS/KG (273-304); Potassium 4.1 MMOL/L (3.5-5.1)
[2021-08-05] MEDS: INSULIN LISPRO 100 UNIT/ML SUBCUT SCH ×4 (07:50→22:00)
[2021-08-05] MEDS ORDERED: VANCOMYCIN INJ 1,250 MG in SODIUM CHLORIDE 0.9% 250 ML IV ONE (09:00)
[2021-08-05] MEDS: ONDANSETRON 4 MG/2 ML VIAL IV PRN ×3 (09:48→19:05)
[2021-08-05] MEDS: cefTRIAXone 1,000 MG in SODIUM CHLORIDE 0.9% 100 ML IV SCH (09:53)
[2021-08-05] MEDS: AZITHROMYCIN 250 MG TABLET PO SCH (09:57)
[2021-08-05] MEDS: NEBIVOLOL 10 MG TABLET PO SCH (09:57)
[2021-08-05] MEDS: amLODIPine 10 MG TABLET PO SCH (09:58)
[2021-08-05] MEDS: PANTOPRAZOLE 40 MG TABLET PO SCH (09:58)
[2021-08-05] MEDS: FERROUS SULFATE 325 MG TABLET PO SCH ×2 (09:58→22:00)
[2021-08-05] MEDS: APIXABAN 2.5 MG TABLET PO SCH ×2 (09:58→21:59)
[2021-08-05] MEDS: FENOFIBRATE 145 MG TABLET PO SCH (09:58)
[2021-08-05] MEDS: CLOPIDOGREL 75 MG TABLET PO SCH (09:58)
[2021-08-05] MEDS: SILDENAFIL 20 MG TABLET PO SCH ×3 (09:58→22:00)
[2021-08-05] MEDS: RALOXIFENE 60 MG TABLET PO SCH (10:00)
[2021-08-05] MEDS: CEFEPIME 1,000 MG in SODIUM CHLORIDE 0.9% 100 ML IV SCH (16:50)
[2021-08-05] MEDS: clonazePAM 0.5 MG TABLET PO PRN (21:59)
[2021-08-05] MEDS: ATORVASTATIN 40 MG TABLET PO SCH (22:00)
[2021-08-05] MEDS: ACETAMINOPHEN 325 MG TABLET PO PRN (22:00)
[2021-08-05] MEDS: DOCUSATE/SENNA 50-8.6 MG TABLET PO PRN (22:00)
[2021-08-05] MEDS: TERAZOSIN 1 MG CAPSULE PO SCH (22:00)
[2021-08-06] MEDS: INSULIN LISPRO 100 UNIT/ML SUBCUT SCH ×4 (07:52→20:33)
[2021-08-06] MEDS: PANTOPRAZOLE 40 MG TABLET PO SCH (08:23)
[2021-08-06] MEDS: AZITHROMYCIN 250 MG TABLET PO SCH (08:23)
[2021-08-06] MEDS: FENOFIBRATE 145 MG TABLET PO SCH (08:23)
[2021-08-06] MEDS: NEBIVOLOL 10 MG TABLET PO SCH (08:23)
[2021-08-06] MEDS: APIXABAN 2.5 MG TABLET PO SCH ×2 (08:24→20:31)
[2021-08-06] MEDS: FERROUS SULFATE 325 MG TABLET PO SCH ×2 (08:24→20:32)
[2021-08-06] MEDS: CLOPIDOGREL 75 MG TABLET PO SCH (08:24)
[2021-08-06] MEDS: RALOXIFENE 60 MG TABLET PO SCH (08:24)
[2021-08-06] MEDS: SILDENAFIL 20 MG TABLET PO SCH ×3 (08:24→20:32)
[2021-08-06] MEDS: FUROSEMIDE 40 MG/4 ML VIAL IV SCH ×2 (08:24→20:35)
[2021-08-06] MEDS: amLODIPine 10 MG TABLET PO SCH (08:24)
[2021-08-06 08:35] LABS: Calcium 9.5 MG/DL (8.5-10.1); Osmolality,Calculated 299.3 MOS/KG (273-304); Potassium 4.3 MMOL/L (3.5-5.1)
[2021-08-06] MEDS ORDERED: MAGNESIUM HYDROXIDE SUSP 30 ML UDCUP PO ONE (09:26)
[2021-08-06] MEDS ORDERED: MAGNESIUM HYDROXIDE SUSP 30 ML UDCUP PO PRN (09:26)
[2021-08-06] MEDS: DOCUSATE/SENNA 50-8.6 MG TABLET PO SCH (10:19)
[2021-08-06] MEDS ORDERED: SKIN HEALING OINT (AQUAPHOR) 50 GM TUBE TOP PRN (10:59)
[2021-08-06] MEDS ORDERED: MAGNESIUM CITRATE 300 ML BOTTLE PO ONE (11:07)
[2021-08-06] MEDS: CEFEPIME 1,000 MG in SODIUM CHLORIDE 0.9% 100 ML IV SCH (16:35)
[2021-08-06] MEDS: TERAZOSIN 1 MG CAPSULE PO SCH (20:31)
[2021-08-06] MEDS: ATORVASTATIN 40 MG TABLET PO SCH (20:31)
[2021-08-07 04:50] LABS: Basophils % 0.9 % (0.0-0.8); Eosinophils # 0.2 10*3/uL (0.0-0.87); Eosinophils % 5.2 % (0.00-10.9); Hematocrit 29.9 VOL% (35.7-47.0); Hemoglobin 9.4 GM/DL (12.0-16.0); Immature Granulocytes % 0.2 %; Immature Granulocytes Absolute 0.01 #; Lymphocytes # 0.8 10*3/uL (1.4-4.0); Lymphocytes % 17.2 % (21.3-54.2); Mean Corpuscular HGB Conc 31.4 GM/DL (32-36); Mean Corpuscular Volume 95.8 FL (87-102); Mean Platelet Volume 11.7 FL (9.6-12.0); Monocytes % 10.2 % (1.7-12.7); Neutrophils % 66.3 % (38.7-73.9); Platelet Count 162 T/CUMM (130-400); Red Blood Count 3.12 MC/CUMM (3.8-5.5); Red Cell Distribution Width 16.6 % (9.3-17.3); White Blood Count 4.4 T/CUMM (4-12)
[2021-08-07 05:21] LABS: Calcium 9.2 MG/DL (8.5-10.1); Osmolality,Calculated 291.7 MOS/KG (273-304); Potassium 3.7 MMOL/L (3.5-5.1)
[2021-08-07] MEDS: fentaNYL 25 MCG/HR PATCH TRANSDERM SCH (09:31)
[2021-08-07] MEDS: FENOFIBRATE 145 MG TABLET PO SCH (09:33)
[2021-08-07] MEDS: CLOPIDOGREL 75 MG TABLET PO SCH (09:34)
[2021-08-07] MEDS: amLODIPine 10 MG TABLET PO SCH (09:34)
[2021-08-07] MEDS: AZITHROMYCIN 250 MG TABLET PO SCH (09:34)
[2021-08-07] MEDS: NEBIVOLOL 10 MG TABLET PO SCH (09:34)
[2021-08-07] MEDS: FERROUS SULFATE 325 MG TABLET PO SCH ×2 (09:34→22:00)
[2021-08-07] MEDS: SILDENAFIL 20 MG TABLET PO SCH ×3 (09:34→22:00)
[2021-08-07] MEDS: DOCUSATE/SENNA 50-8.6 MG TABLET PO SCH (09:34)
[2021-08-07] MEDS: POLYETHYLENE GLYCOL POWDER 17 GM PACK PO SCH (09:35)
[2021-08-07] MEDS: PANTOPRAZOLE 40 MG TABLET PO SCH (09:35)
[2021-08-07] MEDS: FUROSEMIDE 40 MG/4 ML VIAL IV SCH ×2 (09:35→22:04)
[2021-08-07] MEDS: APIXABAN 2.5 MG TABLET PO SCH ×2 (09:35→22:00)
[2021-08-07] MEDS: INSULIN LISPRO 100 UNIT/ML SUBCUT SCH ×4 (12:18→22:46)
[2021-08-07] MEDS: RALOXIFENE 60 MG TABLET PO SCH (12:18)
[2021-08-07] MEDS: THYROID 60 MG TABLET PO SCH (15:06)
[2021-08-07] MEDS: CEFEPIME 1,000 MG in SODIUM CHLORIDE 0.9% 100 ML IV SCH (15:06)
[2021-08-07] MEDS: clonazePAM 0.5 MG TABLET PO PRN (21:58)
[2021-08-07] MEDS: ATORVASTATIN 40 MG TABLET PO SCH (22:00)
[2021-08-07] MEDS: TERAZOSIN 1 MG CAPSULE PO SCH (22:00)
[2021-08-08 06:19] LABS: Basophils % 0.6 % (0.0-0.8); Eosinophils # 0.3 10*3/uL (0.0-0.87); Eosinophils % 6.2 % (0.00-10.9); Hemoglobin 9.8 GM/DL (12.0-16.0); Immature Granulocytes % 0.4 %; Immature Granulocytes Absolute 0.02 #; Lymphocytes # 0.7 10*3/uL (1.4-4.0); Lymphocytes % 13.1 % (21.3-54.2); Mean Corpuscular HGB Conc 31.6 GM/DL (32-36); Mean Corpuscular Volume 95.1 FL (87-102); Mean Platelet Volume 11.3 FL (9.6-12.0); Monocytes % 9.9 % (1.7-12.7); Neutrophils % 69.8 % (38.7-73.9); Platelet Count 156 T/CUMM (130-400); Red Blood Count 3.26 MC/CUMM (3.8-5.5); Red Cell Distribution Width 16.7 % (9.3-17.3); White Blood Count 5.3 T/CUMM (4-12)
[2021-08-08 06:38] LABS: Calcium 9.4 MG/DL (8.5-10.1); Osmolality,Calculated 290.7 MOS/KG (273-304); Potassium 3.5 MMOL/L (3.5-5.1)
[2021-08-08 06:44] LABS: Albumin 2.5 G/DL (3.4-5.0); Bilirubin,Direct 0.2 MG/DL (0.0-0.20); Bilirubin,Indirect 0.6 MG/DL (0.0-1.0); Bilirubin,Total 0.8 MG/DL (0.20-1.00)
[2021-08-08] MEDS: INSULIN LISPRO 100 UNIT/ML SUBCUT SCH ×4 (10:06→21:28)
[2021-08-08] MEDS: CLOPIDOGREL 75 MG TABLET PO SCH (10:17)
[2021-08-08] MEDS: APIXABAN 2.5 MG TABLET PO SCH ×2 (10:17→21:26)
[2021-08-08] MEDS: RALOXIFENE 60 MG TABLET PO SCH (10:17)
[2021-08-08] MEDS: FERROUS SULFATE 325 MG TABLET PO SCH ×2 (10:17→21:27)
[2021-08-08] MEDS: SILDENAFIL 20 MG TABLET PO SCH ×3 (10:18→21:27)
[2021-08-08] MEDS: ONDANSETRON 4 MG/2 ML VIAL IV PRN ×2 (10:18→21:27)
[2021-08-08] MEDS: amLODIPine 10 MG TABLET PO SCH (10:18)
[2021-08-08] MEDS: FUROSEMIDE 40 MG/4 ML VIAL IV SCH ×2 (10:18→21:27)
[2021-08-08] MEDS: POLYETHYLENE GLYCOL POWDER 17 GM PACK PO SCH (10:18)
[2021-08-08] MEDS: DOCUSATE/SENNA 50-8.6 MG TABLET PO SCH (10:18)
[2021-08-08] MEDS: NEBIVOLOL 10 MG TABLET PO SCH (10:18)
[2021-08-08] MEDS: FENOFIBRATE 145 MG TABLET PO SCH (10:18)
[2021-08-08] MEDS: PANTOPRAZOLE 40 MG TABLET PO SCH (10:20)
[2021-08-08] MEDS ORDERED: VANCOMYCIN INJ 1,250 MG in SODIUM CHLORIDE 0.9% 250 ML IV ONE (11:00)
[2021-08-08] MEDS: CEFEPIME 1,000 MG in SODIUM CHLORIDE 0.9% 100 ML IV SCH (16:41)
[2021-08-08] MEDS: TERAZOSIN 1 MG CAPSULE PO SCH (21:26)
[2021-08-08] MEDS: clonazePAM 0.5 MG TABLET PO PRN (21:27)
[2021-08-08] MEDS: ATORVASTATIN 40 MG TABLET PO SCH (21:27)
[2021-08-08] MEDS: ACETAMINOPHEN 325 MG TABLET PO PRN (21:27)
[2021-08-09 06:32] LABS: Basophils # 0.1 10*3/uL (0.0-0.2); Eosinophils # 0.3 10*3/uL (0.0-0.87); Hematocrit 31.7 VOL% (35.7-47.0); Hemoglobin 9.8 GM/DL (12.0-16.0); Immature Granulocytes % 0.6 %; Immature Granulocytes Absolute 0.03 #; Lymphocytes # 0.7 10*3/uL (1.4-4.0); Lymphocytes % 14.2 % (21.3-54.2); Mean Corpuscular HGB Conc 30.9 GM/DL (32-36); Mean Corpuscular Volume 96.9 FL (87-102); Monocytes % 9.6 % (1.7-12.7); Neutrophils % 68.6 % (38.7-73.9); Platelet Count 152 T/CUMM (130-400); Red Blood Count 3.27 MC/CUMM (3.8-5.5); Red Cell Distribution Width 16.9 % (9.3-17.3)
[2021-08-09 07:07] LABS: Calcium 9.3 MG/DL (8.5-10.1); Osmolality,Calculated 290.5 MOS/KG (273-304); Potassium 4.1 MMOL/L (3.5-5.1)
[2021-08-09] MEDS: POLYETHYLENE GLYCOL POWDER 17 GM PACK PO SCH (09:15)
[2021-08-09] MEDS: NEBIVOLOL 10 MG TABLET PO SCH (09:15)
[2021-08-09] MEDS: RALOXIFENE 60 MG TABLET PO SCH (09:15)
[2021-08-09] MEDS: FUROSEMIDE 40 MG/4 ML VIAL IV SCH (09:15)
[2021-08-09] MEDS: DOCUSATE/SENNA 50-8.6 MG TABLET PO SCH (09:15)
[2021-08-09] MEDS: SILDENAFIL 20 MG TABLET PO SCH ×2 (09:16→15:33)
[2021-08-09] MEDS: amLODIPine 10 MG TABLET PO SCH (09:16)
[2021-08-09] MEDS: FENOFIBRATE 145 MG TABLET PO SCH (09:16)
[2021-08-09] MEDS: CLOPIDOGREL 75 MG TABLET PO SCH (09:16)
[2021-08-09] MEDS: PANTOPRAZOLE 40 MG TABLET PO SCH (09:16)
[2021-08-09] MEDS: FERROUS SULFATE 325 MG TABLET PO SCH (09:16)
[2021-08-09] MEDS: APIXABAN 2.5 MG TABLET PO SCH (09:16)
[2021-08-09] MEDS: INSULIN LISPRO 100 UNIT/ML SUBCUT SCH ×2 (09:17→15:20)
[2021-08-09] MEDS: THYROID 60 MG TABLET PO SCH (15:21)
[2021-08-09] MEDS: CEFEPIME 1,000 MG in SODIUM CHLORIDE 0.9% 100 ML IV SCH (15:55)
[2021-08-09 16:29] VITALS: BP 140/60
[2021-08-09] MEDS ORDERED: PANTOPRAZOLE 40 MG TABLET PO SCH (21:00)
== END 2021-08-09 16:35 | disposition home health service (06) | DRG 291 ==
LOC: EDUNIT# → EDBD → N.ED 09:27 → SUATTDRO 10:36 → N.EDINP 10:36 → N.5E 14:52
PROVIDERS: ADMIT Internal Medicine; ATTEND Internal Medicine